=== PATIENT | male | born 1985 | race Caucasian/White ===

== ENCOUNTER 2019-10-20 18:05 | Observation (INO) | payer SELFPAY ==
[2019-10-20] MEDS ORDERED: THIAMINE HCL 100 MG, MULTIVIT INFUSN,ADULT 1,VIT K 10 ML, FOLIC ACID 5 MG in 0.9 % SODI... IV ONE (18:11)
[2019-10-20] MEDS ORDERED: THIAMINE HCL 200 MG/2 ML VIAL ONE (18:18)
[2019-10-20] MEDS ORDERED: 0.9 % SODIUM CHLORIDE 1,000 ML IV ONE ×2 (18:18→19:26)
[2019-10-20] MEDS ORDERED: FOLIC ACID 5 MG/1 ML ONE (18:18)
[2019-10-20] MEDS ORDERED: MULTIVIT INFUSN,ADULT 1,VIT K 10 ML VIAL IV ONE (18:20)
--- NOTE | 2019-10-20 18:33 | ED Physician Documentation ---
General Adult - HISTORIAN Historian: patient - HPI Chief Complaint: General Adult Additional Information: 34 year old male that presents via [facility]- states that he has been drinking for the last few days; he is going through a divorce ( 5 years- no children); his father suddenly a few days ago at the age of 69. He states that he does not talk to his siblings; they dont get along; he drives a truck over the road; however, for as many beers as he said he has had he is talking and answering questions appropriately; but not answering appropriately for nursing. Onset: hours Timing: still present Severity: moderate Modifying Factors: Alcohol use - ROS CONST: no problems EYES/ENT: none CVS/RESP: none GI/: none MS/SKIN/LYMPH: none NEURO/PSYCH: denies: headache - PAST HX Past History: none Other History: diabetes Type 2 Surgeries/Procedures: cholecystectomy Immunizations: UTD - SOCIAL HX Smoking History: non-smoker Alcohol Use: occasionally Drug Use: none - FAMILY HX Family History: No - REVIEWED ASSESSMENTS Nursing Assessment Reviewed: Yes Vitals Reviewed: Yes <Allegra Deluna - Last Filed: 10/20/19 18:59> - VITAL SIGNS Vital Signs: Vital Signs Temp Pulse Resp BP Pulse Ox 97.6 F 112 H 28 H 131/89 96 10/20/19 18:05 10/20/19 18:05 10/20/19 18:05 10/20/19 18:05 10/20/19 18:05 <Brandi Salgado - Last Filed: 10/20/19 21:02> - PAST HX Allergies/Adverse Reactions: Allergies Allergy/AdvReac Type Severity Reaction Status Date / Time Penicillins Allergy Verified 10/20/19 18:53 Home Medications: Ambulatory Orders Medication Instructions Recorded Dulaglutide [Trulicity] 0.5 ml SQ DAILY 10/20/19 Metformin HCl [Metformin ER 1 tab PO BID 10/20/19 Gastric] Progress - Progress Progress: 1910: care assumed. Pt moved to a room closer for obs. DG 2010: more alert - asking to leave will re draw alcohol level DG 2053: he is agreeable to obs status DG <Brandi Salgado - Last Filed: 10/20/19 21:02> ED Results Lab/Radiology - Orders Orders: ED Orders Category Date Time Status Place IV Lock 1T Care 10/20/19 18:10 Active ALCOHOL MEDICAL USE ONLY Stat Lab 10/20/19 18:15 Received CBC/PLATELET/DIFF Routine Lab 10/20/19 18:15 Received CMP Routine Lab 10/20/19 18:15 Received 0.9 % Sodium Chloride [Normal Saline] 1,000 ml Med 10/20/19 18:18 Discontinued IV .STK-MED Folic Acid [Folvite] Med 10/20/19 18:18 Discontinued 5 mg .ROUTE .STK-MED ONE Multivit Infusn,Adult 1,Vit K [M.v.i. Adult] Med 10/20/19 18:20 Discontinued 10 ml IV .STK-MED ONE Thiamine HCl [Vitamin B-1] Med 10/20/19 18:18 Discontinued 200 mg .ROUTE .STK-MED ONE Thiamine HCl [Vitamin B-1] 100 mg Med 10/20/19 18:11 Active Multivit Infusn,Adult 1,Vit K [M.v.i. Adult] 10 ml Folic Acid [Folvite] 5 mg 0.9 % Sodium Chloride [Normal Saline] 1,000 ml IV NOW <Allegra Deluna - Last Filed: 10/20/19 18:59> - Lab Results Lab Results: Lab Results 10/20/19 10/20/19 18:15 18:15 WBC 4.50 K/ul K/ul (4.00-12.00) RBC 6.00 M/ul H M/ul (3.90-5.20) Hgb 17.0 g/dL g/dL (12.0-18.0) Hct 52.6 % % (37.0-53.0) MCV 88.0 fl fl (80.0-100.0) MCH 28.2 pg pg (28.0-34.0) MCHC 32.2 g/dL g/dL (30.0-36.0) RDW 10.9 % L % (11.3-14.3) Plt Count 204 K/mm3 K/mm3 (130-400) Neut % (Auto) 31.1 % L % (39.0-79.0) Lymph % (Auto) 53.3 % H % (16.0-50.0) Sevier % (Auto) 13.1 % H % (0.0-11.0) Eos % (Auto) 1.3 % % (0.0-6.8) Baso % (Auto) 0.7 % % (0.0-1.5) Neut # (Auto) 1.4 # k/uL # k/uL (1.4-7.7) Lymph # (Auto) 2.4 # k/uL # k/uL (0.6-4.0) Sevier # (Auto) 0.6 # k/uL # k/uL (0.0-0.9) Eos # (Auto) 0.1 # k/uL # k/uL (0.0-0.6) Baso # (Auto) 0.0 # k/uL # k/uL (0.0-0.5) Seg Neutrophils % 36 % L % (39-79) Lymphocytes % 56 % H % (16-50) Monocytes % 6 % % (0-11) Eosinophils % 2 % % (0-7) Plt Morphology Comment Normal (NORMAL) RBC Morph Comment Normal (NORMAL) Sodium 141 mmol/L mmol/L (137-145) Potassium 5.3 mmol/L H mmol/L (3.5-5.1) Chloride 103 mmol/L mmol/L (98-107) Carbon Dioxide 21 mmol/L L mmol/L (22-30) Anion Gap 22.3 BUN 4 mg/dL L mg/dL (9-20) Creatinine 0.62 mg/dL L mg/dL (0.66-1.25) Estimated Creat Clear 193 Est GFR ( Amer) > 60 (60 - ) Est GFR (Non-Af Amer) > 60 (60 - ) Glucose 263 mg/dL H mg/dL (74-106) Calcium 8.9 mg/dL mg/dL (8.4-10.2) Total Bilirubin 2.0 mg/dL H mg/dL (0.2-1.3) AST 106 U/L H U/L (15-46) ALT 71 U/L H U/L (0-50) Alkaline Phosphatase 101 U/L U/L (38-126) Total Protein 8.6 g/dL H g/dL (6.3-8.2) Albumin 4.7 g/dL g/dL (3.5-5.0) Ethyl Alcohol 346.9 mg/dL H mg/dL (0.0-10.0) - Orders Orders: ED Orders Category Date Time Status Place IV Lock 1T Care 10/20/19 18:10 Active ALCOHOL MEDICAL USE ONLY Stat Lab 10/20/19 18:15 Completed CBC/PLATELET/DIFF Routine Lab 10/20/19 18:15 Completed CMP Routine Lab 10/20/19 18:15 Completed 0.9 % Sodium Chloride [Normal Saline] 1,000 ml Med 10/20/19 18:18 Discontinued IV .STK-MED Folic Acid [Folvite] Med 10/20/19 18:18 Discontinued 5 mg .ROUTE .STK-MED ONE Multivit Infusn,Adult 1,Vit K [M.v.i. Adult] Med 10/20/19 18:20 Discontinued 10 ml IV .STK-MED ONE Thiamine HCl [Vitamin B-1] Med 10/20/19 18:18 Discontinued 200 mg .ROUTE .STK-MED ONE Thiamine HCl [Vitamin B-1] 100 mg Med 10/20/19 18:11 Discontinued Multivit Infusn,Adult 1,Vit K [M.v.i. Adult] 10 ml Folic Acid [Folvite] 5 mg 0.9 % Sodium Chloride [Normal Saline] 1,000 ml IV NOW <Brandi Salgado - Last Filed: 10/20/19 21:02> General Adult Physical Exam - PHYSICAL EXAM GENERAL APPEARANCE: mild distress EENT: eye inspection normal, ENT inspection normal, pharynx normal, no signs of dehydration, MAIRA, TM's nml NECK: normal inspection, supple RESPIRATORY: breath sounds normal CVS: heart sounds normal ABDOMEN: soft, normal bowel sounds BACK: normal inspection SKIN: warm/dry, normal color EXTREMITIES: non-tender NEURO: oriented X3, CN's nml as tested, motor nml, sensation nml, mood/affect nml, cognition normal <Allegra Deluna - Last Filed: 10/20/19 18:59> Discharge <Allegra Deluna - Last Filed: 10/20/19 18:59> Comments: OBS status DG Decision to Admit: NO Date of Decison to Admit: 10/20/19 Decision Time: 21:01 <Brandi Salgado - Last Filed: 10/20/19 21:02> Clincal Impression: Alcohol intoxication Qualifiers: Complication of substance-induced condition: uncomplicated Qualified Code(s): F10.920 - Alcohol use, unspecified with intoxication, uncomplicated Condition: Good
[2019-10-20 18:39] LABS: eGFR (Non-African) > 60
[2019-10-20 18:57] LABS: BASOPHILS % 0.7 % (0.0-1.5); NEUTROPHILS # 1.4 # k/uL (1.4-7.7)
[2019-10-20 18:58] LABS: SEGMENTED NEUTROPHILS % 36 % (39-79)
[2019-10-20] MEDS ORDERED: 0.9 % SODIUM CHLORIDE 1,000 ML IV SCH (21:15)
[2019-10-20] MEDS: metFORMIN HCl 500 MG TABLET PO SCH (21:57)
[2019-10-20 22:07] VITALS: BMI 30.3
[2019-10-21] MEDS: metFORMIN HCl 500 MG TABLET PO SCH (07:20)
[2019-10-21 09:35] VITALS: BP 164/91
[2019-10-21 09:56] LABS: eGFR (Non-African) > 60
[2019-10-21] MEDS ORDERED: Lidocaine 1% 5ml 10 MG/ML VIAL IJ ONE (11:03)
[2019-10-21] MEDS ORDERED: POTASSIUM CHLORIDE 20 MEQ TABLET.ER PO ONE (11:04)
[2019-10-21] MEDS ORDERED: ONDANSETRON HCL/PF 4 MG/ 2ML VIAL IVP ONE (11:04)
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
== END 2019-10-21 11:25 | disposition home or self-care (01) ==
LOC: ED 18:05 → SOUTH 20:57
PROVIDERS: ADMIT Nurse Practitioner Family; ATTEND Nurse Practitioner Family
DX: F10.920 Alcohol use, unspecified with intoxication, uncomplicated (principal); Y90.9 Presence of alcohol in blood, level not specified
CPT/HCPCS: 80053; 80320; 85025; 96360; 96361; 99218; 99282; 99284; G0378; J3411; J3490; J7030; 93005; G0480; S1016